=== PATIENT | male | born 2000 | race Hispanic/Latino ===

== ENCOUNTER 2019-04-25 09:00 | Emergency (ER) | payer OTHER ==
--- NOTE | 2019-04-25 09:42 | RAD ---
XR Chest Pa Lat STANDARD HISTORY: Cough, chest pain COMPARISON: None FINDINGS: The heart size is normal. The lungs are well expanded without focal areas of consolidation, pneumothorax or pleural effusions. IMPRESSION: No radiographic evidence of acute cardiopulmonary process.
== END 2019-04-25 10:09 | disposition home or self-care (01) ==
LOC: ERS 09:00
DX: R07.89 Other chest pain (principal); R05 Cough; I10 Essential (primary) hypertension
CPT/HCPCS: 71046

== ENCOUNTER 2019-04-29 09:37 | Emergency (ER) | payer OTHER ==
--- NOTE | 2019-04-29 10:29 | RAD ---
PORTABLE CHEST: HISTORY: Cough. FINDINGS: Heart size and mediastinum are within normal limits. The lungs are clear of any infiltrative process. No bony findings. IMPRESSION: No active intrathoracic disease. POS: [facility]
[2019-04-29] MEDS ORDERED: Dexamethasone 10 MG/ML VIAL ONE (11:18)
== END 2019-04-29 12:50 | disposition home or self-care (01) ==
LOC: ERS 09:37
DX: J06.9 Acute upper respiratory infection, unspecified (principal); I10 Essential (primary) hypertension
CPT/HCPCS: 71045; 87804; 94664; J1100